=== PATIENT | female | born 1955 ===

== ENCOUNTER 2017-01-09 22:48 | Emergency (ER) | payer SELFPAY ==
[~2017-01-09] VITALS: Ht 154.9 cm; Wt 96.8 kg
[2017-01-09 22:52] VITALS: Ht 154.9 cm; Wt 96.8 kg
[2017-01-09] MEDS ORDERED: morphine 4 MG/ML VIAL IM STA (23:20)
[2017-01-09] MEDS ORDERED: KETOROLAC 60 MG INJ IM STA (23:20)
--- NOTE | 2017-01-10 01:57 | RADRPT ---
PROCEDURE: XR Lumbar Spine. CLINICAL INDICATION: Trauma. TECHNIQUE: Complete lumbar spine study including AP, lateral, obliques and coned L5-S1 views was p erformed. COMPARISON: No similar studies are submitted for comparison. FINDINGS: Vertebral body stature and alignment maintained. There is no evidence of fracture or subluxation. N o destructive osseous lesions are seen. IMPRESSION: No evidence of compression fracture. RPTAT: HIKT .Gopi Raines MD, MD Date Time Electronically viewed and signed by .Gopi Raines MD, MD on 01/10/2017 01:57 .T/
[2017-01-10] MEDS ORDERED: HYDR-906 PO (03:19)
[2017-01-10] MEDS ORDERED: METH500T PO (03:19)
[2017-01-10] MEDS ORDERED: NAPR-688 PO (03:19)
--- NOTE | 2017-01-10 03:27 | ERD ---
ER Documentation Chief Complaint Chief Complaint SEB KRUGER from home, c/o back pain HPI 61-year-old female presents with lower back pain is been going on for the last couple of days ever since she was lifting up a thing of water and she felt lower back pain. She has been ambulatory but has had some pain when ambulating. Finally she thought she come and get it checked out make sure she does have any kind of fracture or anything. ROS All systems reviewed and are negative except as per history of present illness. Medications Home Meds Active Scripts Methocarbamol* (Robaxin*) 500 Mg Tab, 500 MG PO Q8 for MUSCLE SPASMS, #20 TAB Prov:SHAUNA GONZÁLES DO 01/10/17 Naproxen* (Naproxen*) 500 Mg Tablet, 500 MG PO BID Y for PAIN, #20 TAB Prov:SHAUNA GONZÁLES DO 01/10/17 Hydrocodone/Acetaminophen (Butler 5-325 Tablet) 1 Each Tablet, 1 EACH PO Q6, #20 TAB Prov:SHAUNA GONZÁLES DO 01/10/17 Allergies Allergies: Coded Allergies: No Known Allergy (Unverified , 01/09/17) PMhx/Soc History of Surgery: Yes (hysterectomy) Anesthesia Reaction: No Hx Neurological Disorder: No Hx Respiratory Disorders: No Hx Cardiac Disorders: No Hx Psychiatric Problems: No Hx Miscellaneous Medical Probl: Yes (DM2) Hx Alcohol Use: No Hx Substance Use: No Hx Tobacco Use: No Smoking Status: Never smoker Physical Exam Vitals Vital Signs Date Time Temp Pulse Resp B/P Pulse Ox O2 Delivery O2 Flow Rate FiO2 01/09/17 22:52 97.2 101 18 197/92 96 Physical Exam Const: [] Distress, appears uncomfortable but is able to smile on history taking ENT: Normal External Ears, Nose and Mouth. Abd: Soft, non tender, non distended. Normal bowel sounds Skin: No petechiae or rashes Back: No midline, is, bilateral paraspinal muscle spasm with tenderness greater on the right than the left. No deformities Ext: No cyanosis, or edema Neur: Awake and alert 3, sensation intact bilateral feet and lower extremities Results 24 hrs Current Medications Medications (Trade) Dose Ordered Sig/Melony Route PRN Reason Start Time Stop Time Status Last Admin Dose Admin Morphine Sulfate (morphine) 4 mg ONCE STAT IM 01/09/17 23:20 01/09/17 23:22 DC 01/09/17 23:25 Ketorolac Tromethamine (Toradol) 60 mg ONCE STAT IM 01/09/17 23:20 01/09/17 23:22 DC 01/09/17 23:25 Procedures/MDM Low back muscle spasm without fracture or acute bony abnormality. Possible herniated disc. Patient was given morphine and Toradol IM injections in the emergency room which calmed her pain greatly. Going to discharge her with Butler , naproxen and Robaxin as well as instructions to follow-up with primary care doctor and obtain an appointment for an MRI of the symptoms continue. Currently has no neurological deficits. Leg strength. Departure Diagnosis: Primary Impression: Back strain Additional Impression: Back muscle spasm Condition: Stable Patient Instructions: Back Sprain/Strain Referrals: [facility] YOU HAVE RECEIVED A MEDICAL SCREENING EXAM AND THE RESULTS INDICATE THAT YOU DO NOT HAVE A CONDITION THAT REQUIRES URGENT TREATMENT IN THE EMERGENCY DEPARTMENT. FURTHER EVALUATION AND TREATMENT OF YOUR CONDITION CAN WAIT UNTIL YOU ARE SEEN IN YOUR DOCTORS OFFICE WITHIN THE NEXT 1-2 DAYS. IT IS YOUR RESPONSIBILITY TO MAKE AN APPOINTMENT FOR FOLOW-UP CARE. IF YOU HAVE A PRIMARY DOCTOR --you should call your primary doctor and schedule an appointment IF YOU DO NOT HAVE A PRIMARY DOCTOR YOU CAN CALL OUR PHYSICIAN REFERRAL HOTLINE AT IF YOU CAN NOT AFFORD TO SEE A PHYSICIAN YOU CAN CHOSE FROM THE FOLLOWING [facility] [address] [facility]. [facility] [address] [facility] [facility] [address] [facility]. [facility] [address] [facility]. [facility] [address] [facility]. [facility]. [address] Additional Instructions: Llame al doctor MAANA y lelia cristina NATALEE PARA DENTRO DE 2-3 THORNTON.Dgale a la secretaria que nosotros le instruimos hacer esta natalee. Consigue cristina natalee para un MRI. Avise o llame si carter condicin se empeora antes de la natalee. Regresa aqui si peor o no mejor. SHAUNA GONZÁLES DO Jan 10, 2017 03:27
[2017-01-10 03:35] VITALS: BP 149/64; PULSE 90; RESP 16; TEMP 98.8
== END 2017-01-10 03:38 | disposition home or self-care (01) ==
LOC: E/R 22:48
DX: S39.012A Strain of muscle, fascia and tendon of lower back, initial encounter (principal); E11.9 Type 2 diabetes mellitus without complications; X50.0XXA Overexertion from strenuous movement or load, initial encounter
CPT/HCPCS: 72100; 96372; 99284; J1885; J2270